=== PATIENT | male | born 1990 | race Caucasian/White ===

== ENCOUNTER → 2025-08-19 | Outpatient (CLI) | payer MEDICARE, MEDICAID, SELFPAY ==
[2025-08-19 16:28] LABS: Lithium 0.85 mmol/L (0.60-1.20)
== END | disposition home or self-care (01) ==
PROVIDERS: PCP Internal Medicine; Referring Provider Family Medicine; Visit Provider Family Medicine
DX: F25.9 Schizoaffective disorder, unspecified (principal)
CPT/HCPCS: 80178

== ENCOUNTER → 2025-08-22 | Outpatient (CLI) | payer MEDICARE, MEDICAID, SELFPAY ==
[2025-08-22 14:45] LABS: Lithium 0.85 mmol/L (0.60-1.20)
== END | disposition home or self-care (01) ==
PROVIDERS: Referring Provider Family Medicine; Visit Provider Family Medicine
DX: F25.9 Schizoaffective disorder, unspecified (principal)
CPT/HCPCS: 80178